=== PATIENT | female | born 1945 | race Caucasian/White ===

== ENCOUNTER 2019-02-17 06:39 | Day surgery (SDC) | payer MEDICARE, OTHER ==
[~2019-02-17] VITALS: Ht 162.6 cm; Wt 73.1 kg
[~2019-02-17 06:39] MED LIST: Advil200 M1 PO; CBD OIL PO; MULTI-DAY PLUS1 EAC1 PO
== END 2019-02-17 09:15 | disposition home or self-care (01) ==
LOC: ORSCSDS 06:39
PROVIDERS: Surgery
PROC: 3E0H8GC Introduction of Other Therapeutic Substance into Lower GI, Via Natural or Artificial Opening Endoscopic (ICD-10-PCS; principal; 2019-02-17 08:00)
PROC: 0DBH8ZX Excision of Cecum, Via Natural or Artificial Opening Endoscopic, Diagnostic (ICD-10-PCS; principal; 2019-02-17 08:00)
PROC: 0DBP8ZX Excision of Rectum, Via Natural or Artificial Opening Endoscopic, Diagnostic (ICD-10-PCS; principal; 2019-02-17 08:00)
DX: R19.5 Other fecal abnormalities (principal); C20 Malignant neoplasm of rectum; D12.0 Benign neoplasm of cecum; K64.4 Residual hemorrhoidal skin tags; K64.8 Other hemorrhoids; K57.30 Diverticulosis of large intestine without perforation or abscess without bleeding
CPT/HCPCS: 88305; J0461; J2001; J2405; J2704; J7120

== ENCOUNTER 2019-03-06 12:42 | Inpatient (IN) | payer MEDICARE, OTHER ==
[~2019-03-06] VITALS: Ht 160 cm; Wt 72.5 kg
--- NOTE | 2019-03-09 06:45 | NUR ---
Ambulatory in Day Surgery. 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 Patient confirms NPO status and agrees with scheduled surgery. Patient reports completing Chlorhexadine shower X2 prior to admission to hospital.Surgical site prepped with 2% Chlorhexidine cloth wipe.
--- NOTE | 2019-03-09 07:40 | NUR ---
PT MED WITH MIDAZOLAM [address] MOORE REQUEST. PHONE/VERBAL ORDER GIVEN FROM DR. KITCHEN TO GIVE 1 MG NOW AND 1 MG JUST PRIOR TO OR.
--- NOTE | 2019-03-09 08:02 | NUR ---
PT APPEARS TO BE SLEEPING AT THIS TIME. VS WDL-SEE FLOWSHEET.
--- NOTE | 2019-03-09 15:17 | NUR ---
PT ARRIVED TO UNIT FROM PACU A&OX4. REPORTS PAIN 8/10; MEDICATED PER ORDERS. MALIKA DRESSING TO MIDLINE HAS SMALL AMT SANG DRAINAGE NOTED. LCA, RESPIRATIONS EASY ON 3L NC. BAPTISTE CATH IN PLACE. FAMILY AT BEDSIDE. CALL LIGHT IN REACH.
--- NOTE | 2019-03-09 16:59 | NUR ---
SUMMARY POD 0 LAP COLECTOMY. MALIKA WOUND VAC IN PLACE TO MIDLINE INCISION. SMALL AMOUNT SANGUINOUS DRAINAGE NOTED. PT HAVING SIGNIFICANT PAIN. NEW ORDERS FOR EIGHT SECTION BLOWER. STARTED BRIEF TIME AGO. PT REPORTED PAIN "EASING UP A BIT" AFTER LOADING DOSE. INSTRUCTED PT IN USE. VERBALIZED UNDERSTANDING. MEDICATED PER ORDERS FOR N/V. VSS. CALL LIGHT IN REACH. FAMILY AT BEDSIDE.
--- NOTE | 2019-03-09 20:24 | NUR ---
PAIN: PT REP PAIN CONSISTANTLY 10/22. VSS. SATS 98% ON 3LNC, O2 DEC TO 2L. PRN PAIN MED ORDERS REV W/PT AND SPOUSE. CALL PLACED TO MD. PT STATUS REV, NEW ORDERS FOR LABS AND TO ADJUST UTILIZATION REVIEWER SETTINGS. WILL NOTIFY MD FOR ANY CHANGES OR FURTHER CONCERNS.
--- NOTE | 2019-03-09 20:44 | NUR ---
PROPERTY FIELD ADJUSTER ADJUSTED AT THIS TIME TO NEW ORDERS. BOLUS 10MCG, LOCKOUT CHANGED TO 10 MIN, 4HR MAX 240MCG.
[2019-03-09 20:53] LABS: BASOPHILS ABSOLUTE AUTO 0.03 K/mm3 (0.00-0.23); BASOPHILS PERCENT AUTO 0 % (0-2); EOSINOPHILS PERCENT AUTO 0 % (0-6); Hematocrit 42.2 % (33.0-51.0); Hemoglobin 13.9 g/dL (11.5-16.0); IMMATURE GRAN ABSOLUTE AUTO 0.04 K/mm3 (0.00-0.10); IMMATURE GRAN PERCENT AUTO 0 % (0-1); LYMPHOCYTES ABSOLUTE AUTO 0.61 K/mm3 (0.84-5.20); LYMPHOCYTES PERCENT AUTO 5 % (21-46); MONOCYTES ABSOLUTE AUTO 0.62 K/mm3 (0.16-1.47); MONOCYTES PERCENT AUTO 5 % (4-13); Mean Corpuscular HGB 33.4 pg (26.0-34.0); Mean Corpuscular HGB Conc 32.9 g/dL (31.5-36.5); Mean Corpuscular Volume 101 fL (80-100); Mean Platelet Volume 9.6 fL (9.1-12.4); NEUTROPHILS ABSOLUTE AUTO 10.22 K/mm3 (1.96-9.15); NEUTROPHILS PERCENT AUTO 89 % (41-73); Platelet Count 281 K/mm3 (150-400); RDW Coefficient Variation 12.5 % (11.7-14.2); RDW Standard Deviation 46.8 fL (35.1-46.3); Red Blood Cell Count 4.16 M/mm3 (3.80-5.20); White Blood Cell Count 11.52 K/mm3 (4.00-11.30)
[2019-03-10 04:18] LABS: BASOPHILS ABSOLUTE AUTO 0.04 K/mm3 (0.00-0.23); BASOPHILS PERCENT AUTO 0 % (0-2); EOSINOPHILS ABSOLUTE AUTO 0.02 K/mm3 (0.00-0.68); EOSINOPHILS PERCENT AUTO 0 % (0-6); Hematocrit 39.2 % (33.0-51.0); Hemoglobin 12.8 g/dL (11.5-16.0); IMMATURE GRAN ABSOLUTE AUTO 0.03 K/mm3 (0.00-0.10); IMMATURE GRAN PERCENT AUTO 0 % (0-1); LYMPHOCYTES ABSOLUTE AUTO 1.42 K/mm3 (0.84-5.20); LYMPHOCYTES PERCENT AUTO 15 % (21-46); MONOCYTES ABSOLUTE AUTO 1.03 K/mm3 (0.16-1.47); MONOCYTES PERCENT AUTO 11 % (4-13); Mean Corpuscular HGB Conc 32.7 g/dL (31.5-36.5); Mean Corpuscular Volume 101 fL (80-100); Mean Platelet Volume 9.8 fL (9.1-12.4); NEUTROPHILS ABSOLUTE AUTO 6.89 K/mm3 (1.96-9.15); NEUTROPHILS PERCENT AUTO 73 % (41-73); Platelet Count 256 K/mm3 (150-400); RDW Coefficient Variation 12.7 % (11.7-14.2); RDW Standard Deviation 47.2 fL (35.1-46.3); Red Blood Cell Count 3.88 M/mm3 (3.80-5.20); White Blood Cell Count 9.43 K/mm3 (4.00-11.30)
[2019-03-10 04:35] LABS: Anion Gap 5 mmol/L (6-16); Blood Urea Nitrogen 9 mg/dL (8-24); Bun/Creatinine Ratio 18.7 (12.0-20.0); CO2, Blood 27 mmol/L (21-32); Calcium, Blood 8.7 mg/dL (8.5-10.1); Chloride, Blood 109 mmol/L (98-108); Creatinine, Blood 0.48 mg/dL (0.40-1.00); Glomerular Filtration Rate >60 (60-); Glucose, Blood 111 mg/dL (70-99); Potassium, Blood 4.2 mmol/L (3.5-5.5); Sodium, Blood 141 mmol/L (136-145)
--- NOTE | 2019-03-10 06:33 | NUR ---
POD 1 S/P COLECTOMY. PT VSS T/O NIGHT. SATS 93% ON RA THIS AM. DRESSINGS INTACT W/NO ACTIVE DRNG NOTED. PT STRUGGLED W/PAIN AND NAUSEA EARLY IN SHIFT, REP NAUSEA RESOLVED THIS AM. PAIN MGD W/CALL CENTER OPERATIONS MANAGER AND TORADOL; ORAL PAIN MEDS STARTED THIS AM AFTER [place] RESOLVED. IVF CONT PER ORDERS, [place]MILE [place]. SPOUSE ATTENTIVE IN ROOM. PT USING CALL LIGHT FOR ASSISTANCE, WILL CONT TO MONITOR UNTIL REP GIVEN TO ONCOMING RN.
--- NOTE | 2019-03-10 09:17 | NUR ---
dr gutierrez in to see pt.
--- NOTE | 2019-03-10 17:34 | NUR ---
SUMMARY NO ACUTE CHANGES T/O SHIFT. PT SAT UP IN CHAIR FOR SEVERAL HOURS; NOW BACK TO BED. EMILE POE'Shi, PT VOIDED. MEDICATED PER ORDERS T/O SHIFT FOR PAIN AND NAUSEA. TOLERATING SMALL AMOUNTS OF CLEAR LIQUIDS. DID NOT WISH TO ADVANCE DIET TODAY. REPORTS PASSING SMALL AMT FLATUS. CALL LIGHT AND APPRAISER L[place] IN REACH.
--- NOTE | 2019-03-11 06:34 | NUR ---
POD 2 S/P COLON RESECTION. PT VSS T/O NIGHT. DRESSING CDI. PAIN MGD W/PO PAIN MEDS W/REP RELIEF. PT ADRIANA CLEAR LIQ PO, NO C/O N/V, REP PASSING FLATUS. PT UP INDEP TO BSC, ADRIANA WELL, IS USING CALL LIGHT FOR ASSISTANCE, WILL CONT TO MONITOR UNTIL REP GIVEN TO ONCOMING RN.
--- NOTE | 2019-03-11 12:38 | NUR ---
Upon receiving an admit referral for spiritual care, I visited patient. Patient shared about her surgery, her stress levels, about family unit complications and about her spiritual belief system. I listen empathically, normalize patient's experience, provide anxiety containment, spiritual guidance and prayer. Patient responds well and states that the prayer was "beautiful." I will continue to remainavailable to patient and family.
[2019-03-11] MEDS ORDERED: HYDR1TAB94 PO (13:35)
--- NOTE | 2019-03-11 14:06 | NUR ---
DISCHARGE PT AND FAMILY EDUCATED ON AND RECEIVED PRINTED DC INSTRUCTIONS AND VERBALIZED AN UNDERSTANDING. HARD RX FOR [place]CO GIVEN TO PT TO FILL. IVS DC'D. PT DRESSED WITH ALL PERSONAL BELONGINGS GATHERED. PT LEFT VIA W/C BY FAMILY MEMBERS.
== END 2019-03-11 14:10 | disposition home or self-care (01) | DRG 331 ==
LOC: SURS 03-09 05:51 → PRE IP 03-09 07:30 → SURS 03-09 14:30
PROVIDERS: ADMIT Surgery
PROC: 0DBV0ZZ Excision of Mesentery, Open Approach (ICD-10-PCS; 2019-03-09)
PROC: 0DTN0ZZ Resection of Sigmoid Colon, Open Approach (ICD-10-PCS; principal; 2019-03-09 07:30)
DX: C18.7 Malignant neoplasm of sigmoid colon (principal); G43.809 Other migraine, not intractable, without status migrainosus; Z90.13 Acquired absence of bilateral breasts and nipples; Z98.82 Breast implant status
CPT/HCPCS: 36415; 80048; 83880; 85025; 86850; 86900; 86901; 88309; 94762; A9270-GY; J0360; J0694; J1100; J1170; J1650; J1885; J2250; J2405; J2704; J3010; J7120

== ENCOUNTER 2020-06-02 09:23 | Day surgery (SDC) | payer MEDICARE, OTHER ==
[~2020-06-02] VITALS: Ht 162.6 cm; Wt 74.6 kg
[~2020-06-02 09:23] MED LIST changes: +HYDR1TAB94 PO
[2020-06-02] MEDS ORDERED: Vitamin C100 M1 PO (10:03)
[2020-06-02] MEDS ORDERED: MULTI-VITAMIN1 EAC2 PO (10:03)
[2020-06-02] MEDS ORDERED: THERA-D2000 UNIT (10:03)
== END 2020-06-02 11:40 | disposition home or self-care (01) ==
LOC: ORSCSDS 09:23
PROVIDERS: Surgery
PROC: 0DJD8ZZ Inspection of Lower Intestinal Tract, Via Natural or Artificial Opening Endoscopic (ICD-10-PCS; principal; 2020-06-02 10:45)
DX: Z85.038 Personal history of other malignant neoplasm of large intestine (principal); K57.30 Diverticulosis of large intestine without perforation or abscess without bleeding; K64.8 Other hemorrhoids; Z79.899 Other long term (current) drug therapy
CPT/HCPCS: J0330; J0461; J2405; J2704; J7120

== ENCOUNTER 2025-03-02 06:13 | Day surgery (SDC) | payer MEDICARE, OTHER ==
[~2025-03-02] VITALS: Ht 160 cm; Wt 81.1 kg
[2025-03-02] VITALS (21 sets, daily range): BP systolic 120–189; BP diastolic 62–151
[~2025-03-02 06:13] MED LIST changes: +IBUP200 PO; +LOSA25 PO; +MULTI-VITAMIN1 EAC2 PO; +THERA-D2000 UNIT; +Vitamin C100 M1 PO
--- NOTE | 2025-03-02 06:55 | NUR ---
History, Chart, Medications and Allergies reviewed before start of procedure.Patient confirms NPO status and agrees with scheduled surgery. Pre-Op teaching done. Pt verbalizes understanding. Lungs clear T/O to Auscultation.Patient states colon prep results clear.
--- NOTE | 2025-03-02 07:35 | NUR ---
03/02/25 0735 Phyllis Post CONFIRMED AND REVIEWED H&P, MEDCICATIONS, ALLERGIES, MEDICAL HISTORY, RESPIRATORY HISTORY, VITAL SIGNS, 3-LEAD EKG, CONSENTS, AND PHYSICIAN ORDERS. PATIENT CONFIRMS NPO STATUS AND AGREES WITH SCHEDULED PROCEDURE. MONITOR INTACT WITH CONTINUOUS PULSE OXIMETRY, CAPNOGRAPHY, 3-LEAD EKG, INTERMITTENT BP. SUPPLEMENTAL O2 TO BE TITRATED THROUGHOUT PROCEDURE TO MAINTAIN O2 SATURATION ABOVE 90%. PATIENT DETERMINED TO BE ASA APPROPRIATE FOR PROPOFOL SEDATION PRIOR TO START OF PROCEDURE BY DR. AREVALO.
--- NOTE | 2025-03-02 08:51 | NUR ---
Discharge instructions reviewed with patient. Patient verbalizes understanding. Copy given to patient to take home. Patient States Post-Procedure ride home has been arranged. Discharged via wheelchair to private car for ride home.
== END 2025-03-02 08:58 | disposition home or self-care (01) ==
LOC: ORSCMMR 06:13 → ORD 07:30 → ORSCMMR 08:58
PROVIDERS: Surgery
PROC: 0DBL8ZX Excision of Transverse Colon, Via Natural or Artificial Opening Endoscopic, Diagnostic (ICD-10-PCS; principal; 2025-03-02 07:30)
DX: Z12.11 Encounter for screening for malignant neoplasm of colon (principal); D12.3 Benign neoplasm of transverse colon; K57.30 Diverticulosis of large intestine without perforation or abscess without bleeding; Z85.038 Personal history of other malignant neoplasm of large intestine; Z86.0100 Personal history of colon polyps, unspecified
CPT/HCPCS: 88305; J2704; J7120